=== PATIENT | male | born 1975 | race Caucasian/White ===

== ENCOUNTER 2025-06-11 22:05 | Emergency (ER) | payer BC ==
[~2025-06-11 22:05] MED LIST: Iopamidol 300 61% 100 ML VIAL FS ONE
[2025-06-11] MEDS ORDERED: Ketorolac Tromethamine 30 MG (1 mL) VIAL ONE (23:49)
[2025-06-12 00:14] LABS: #Basophils 0.10 10x3/uL (0.0-0.2); #Eosinophils 0.04 10x3/uL (0.0-0.5); #Monocytes 1.47 10x3/uL (0.0-1.1); #Neutrophils 12.65 10x3/uL (1.5-8.4); %Basophils 0.6 % (0.0-2.0); %Eosinophils 0.2 % (0.0-6.0); %Lymphocytes 10.8 % (18.0-47.0); %Monocytes 9.1 % (0.0-10.0); %Neutrophils 78.7 % (40.0-75.0); Hematocrit 46.9 % (38.8-50.0); Hemoglobin 15.7 g/dL (13.5-17.5); Mean Corpuscular Hemoglobin 27.2 pg (27.0-33.0); Mean Corpuscular Volume 81.1 fL (81.2-95.1); Platelet Count 342 10x3/uL (150-450); Red Blood Cell (RBC) Count 5.78 10x6/uL (4.32-5.72); White Blood Cell (WBC) Count 16.08 10x3/uL (3.5-10.5)
[2025-06-12 00:34] LABS: ALT (SGPT) 25 U/L (Less than 45); AST (SGOT) 20 U/L (11-34); Albumin 4.3 g/dL (3.1-4.5); Alkaline Phosphatase 54 U/L (40-110); Anion Gap 18 mmol/L (10-20); BUN (Urea Nitrogen) 14 mg/dL (8.9-20.6); Bilirubin, Total 0.7 mg/dL (0.3-1.2); Calc. Creatinine Clearance 0 mL/min (70-130); Calcium 9.6 mg/dL (7.8-10.44); Carbon Dioxide 17 mmol/L (22-29); Chloride 107 mmol/L (98-107); Globulin 3.5 g/dL (2.4-3.5); Glucose 114 mg/dL (70-105); Potassium 3.9 mmol/L (3.5-5.1); Sodium 138 mmol/L (136-145)
[2025-06-12 00:41] LABS: Troponin I Less than 0.010 ng/mL (< 0.028)
== END 2025-06-12 02:00 | disposition home or self-care (01) ==
LOC: CSHERS 22:05
DX: M79.632 Pain in left forearm (principal); R07.89 Other chest pain; E11.9 Type 2 diabetes mellitus without complications; I10 Essential (primary) hypertension; F17.200 Nicotine dependence, unspecified, uncomplicated; V89.2XXA Person injured in unspecified motor-vehicle accident, traffic, initial encounter; Z79.84 Long term (current) use of oral hypoglycemic drugs; Z79.899 Other long term (current) drug therapy
CPT/HCPCS: 71260; 74177; 80053; 84484; 85025; 96374; J1885; Q9967